=== PATIENT | male | born 1980 | race Caucasian/White ===

== ENCOUNTER 2017-02-05 11:36 | Emergency (ER) | payer OTHER ==
[2017-02-05 11:48] VITALS: BP 157/96; PULSE 70; RESP 20; TEMP 98
[2017-02-05] MEDS ORDERED: HYDROcodone/APAP 5-325MG 1 EACH TAB PO STA (12:08)
[2017-02-05] MEDS ORDERED: CYCLOBENZAPRINE 10 MG TAB PO STA (12:08)
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
== END 2017-02-05 12:39 | disposition home or self-care (01) ==
LOC: EC 11:36
DX: M75.82 Other shoulder lesions, left shoulder (principal); M62.838 Other muscle spasm; I10 Essential (primary) hypertension; E11.9 Type 2 diabetes mellitus without complications; F17.200 Nicotine dependence, unspecified, uncomplicated; Z79.84 Long term (current) use of oral hypoglycemic drugs; Z79.899 Other long term (current) drug therapy
CPT/HCPCS: 99283

== ENCOUNTER 2020-11-17 19:04 | Observation (INO) | payer OTHER ==
--- NOTE | 2020-11-17 19:31 | ED ---
General Adult HPI - General Chief complaint: Chest Pain Stated complaint: Chest pain Time Seen by Provider: 11/17/20 19:20 Source: patient Mode of arrival: ambulatory Limitations: no limitations - History of Present Illness Initial comments: Dictation was produced using [employer] dictation software. please excuse any grammatical, word or spelling errors. Chief Complaint: 40-year-old male Sent in by primary care physician for abnormal EKG History of Present Illness: 40-year-old male who has past medical history diabetes and hypertension. States that he's been having on and off exertional chest pain for the last 7 days. He went to see his primary care today and had an abnormal EKG. He was told to come to the emergency department. Patient states he has pain to his epigastric area radiates to his left shoulder and left upper extremity. Patient has any history of coronary artery disease or known heart disease. He reports mild diaphoresis with the symptoms. Patient has any symptoms currently. The ROS documented in this emergency department record has been reviewed and confirmed by me. Those systems with pertinent positive or negative responses have been documented in the HPI. All other systems are other negative and/or noncontributory. PHYSICAL EXAM: General Impression: Alert and oriented x3, not in acute distress HEENT: Normocephalic atraumatic, extra-ocular movements intact, pupils equal and reactive to light bilaterally, mucous membranes moist. Cardiovascular: Heart regular rate and rhythm Chest: Able to complete full sentences, no retractions, no tachypnea Abdomen: abdomen soft, non-tender, non-distended, no organomegaly Musculoskeletal: Pulses present and equal in all extremities, no peripheral ed rolando Motor: no focal deficits noted Neurological: CN II-XII grossly intact, no focal motor or sensory deficits noted Skin: Intact with no visualized rashes Psych: Normal affect and mood ED course: 40-year-old male presents to the emergency department for typical chest pain concerning for acute coronary syndrome. He is pain-free at this time. Physical examination is benign. Vital signs upon arrival are within acceptable limits. Lavatory evaluation obtained. CBC, coag panel, Bolick panel is unremarkable. First troponin is negative. Chest x-ray shows no acute processes. Patient reevaluated bedside at 9:00 PM. There is concern for acute guarding surgery. Patient be admitted for surgical needs, cardiac monitoring and cardiology consultation. He received aspirin at his PCPs office prior to arrival. EKG interpretation: Ventricular rate 69, sinus rhythm,. Interval 136, QRS 84, QTC 411. No IL prolongation, no QTC prolongation, possible hyperacute T waves in anterior precordial leads. Overall, this EKG is nonspecific - Related Data Home Medications Medication Instructions Recorded Confirmed Acetaminophen [Tylenol] 1,500 mg PO DAILY PRN 02/05/17 02/05/17 Atorvastatin [Lipitor] 20 mg PO DAILY 02/05/17 02/05/17 Lisinopril [Prinivil] 10 mg PO DAILY 02/05/17 02/05/17 glipiZIDE XL [Glucotrol Xl] 10 mg PO DAILY 02/05/17 02/05/17 metFORMIN HCL 1,000 mg PO BID 02/05/17 02/05/17 Previous Rx's Medication Instructions Recorded Cyclobenzaprine [Flexeril] 10 mg PO TID PRN #15 tab 02/05/17 Hydrocodone/Acetaminophen [[place] 1 tab PO Q6HR PRN #20 tab 02/05/17 5-325] Ibuprofen [Motrin] 600 mg PO Q8HR PRN #30 tab 02/05/17 Allergies Allergy/AdvReac Type Severity Reaction Status Date / Time No Known Allergies Allergy Verified 02/05/17 11:59 Review of Systems ROS Statement: Those systems with pertinent positive or pertinent negative responses have been documented in the HPI. ROS Other: All systems not noted in ROS Statement are negative. Past Medical History Past Medical History: Diabetes Mellitus, Hypertension History of Any Multi-Drug Resistant Organisms: None Reported Past Surgical History: No Surgical Hx Reported Past Psychological History: No Psychological Hx Reported Smoking Status: Former smoker Past Alcohol Use History: Occasional Past Drug Use History: None Reported General Exam Limitations: no limitations Course Vital Signs 11/17/20 19:14 Temperature 98.8 F Pulse Rate 75 Respiratory 18 Rate Blood Pressure 143/75 O2 Sat by Pulse 98 Oximetry Medical Decision Making - Lab Data Result diagrams: 11/17/20 19:35 11/17/20 19:35 Lab Results 11/17/20 11/17/20 11/17/20 Range/Units 19:35 19:35 19:35 WBC 6.8 (3.8-10.6) k/uL RBC 5.29 (4.30-5.90) m/uL Hgb 16.2 (13.0-17.5) gm/dL Hct 46.6 (39.0-53.0) % MCV 88.0 (80.0-100.0) fL MCH 30.7 (25.0-35.0) pg MCHC 34.9 (31.0-37.0) g/dL RDW 12.8 (11.5-15.5) % Plt Count 203 (150-450) k/uL MPV 8.3 Neutrophils % 51 % Lymphocytes % 37 % Monocytes % 6 % Eosinophils % 3 % Basophils % 1 % Neutrophils # 3.5 (1.3-7.7) k/uL Lymphocytes # 2.5 (1.0-4.8) k/uL Monocytes # 0.4 (0-1.0) k/uL Eosinophils # 0.2 (0-0.7) k/uL Basophils # 0.0 (0-0.2) k/uL PT 10.8 (9.0-12.0) sec INR 1.0 (<1.2) APTT 21.5 L (22.0-30.0) sec Sodium 138 (137-145) mmol/L Potassium 4.7 (3.5-5.1) mmol/L Chloride 104 (98-107) mmol/L Carbon Dioxide 27 (22-30) mmol/L Anion Gap 7 mmol/L BUN 18 (9-20) mg/dL Creatinine 0.99 (0.66-1.25) mg/dL Est GFR (CKD-EPI)AfAm >90 (>60 ml/min/1.73 sqM) Est GFR (CKD-EPI)NonAf >90 (>60 ml/min/1.73 sqM) Glucose 131 H (74-99) mg/dL Calcium 9.3 (8.4-10.2) mg/dL Magnesium 1.9 (1.6-2.3) mg/dL Total Bilirubin 0.2 (0.2-1.3) mg/dL AST 22 (17-59) U/L ALT 19 (4-49) U/L Alkaline Phosphatase 33 L (38-126) U/L Troponin I (0.000-0.034) ng/mL Total Protein 6.2 L (6.3-8.2) g/dL Albumin 3.9 (3.5-5.0) g/dL 11/17/20 Range/Units 19:35 WBC (3.8-10.6) k/uL RBC (4.30-5.90) m/uL Hgb (13.0-17.5) gm/dL Hct (39.0-53.0) % MCV (80.0-100.0) fL MCH (25.0-35.0) pg MCHC (31.0-37.0) g/dL RDW (11.5-15.5) % Plt Count (150-450) k/uL MPV Neutrophils % % Lymphocytes % % Monocytes % % Eosinophils % % Basophils % % Neutrophils # (1.3-7.7) k/uL Lymphocytes # (1.0-4.8) k/uL Monocytes # (0-1.0) k/uL Eosinophils # (0-0.7) k/uL Basophils # (0-0.2) k/uL PT (9.0-12.0) sec INR (<1.2) APTT (22.0-30.0) sec Sodium (137-145) mmol/L Potassium (3.5-5.1) mmol/L Chloride (98-107) mmol/L Carbon Dioxide (22-30) mmol/L Anion Gap mmol/L BUN (9-20) mg/dL Creatinine (0.66-1.25) mg/dL Est GFR (CKD-EPI)AfAm (>60 ml/min/1.73 sqM) Est GFR (CKD-EPI)NonAf (>60 ml/min/1.73 sqM) Glucose (74-99) mg/dL Calcium (8.4-10.2) mg/dL Magnesium (1.6-2.3) mg/dL Total Bilirubin (0.2-1.3) mg/dL AST (17-59) U/L ALT (4-49) U/L Alkaline Phosphatase (38-126) U/L Troponin I <0.012 (0.000-0.034) ng/mL Total Protein (6.3-8.2) g/dL Albumin (3.5-5.0) g/dL Disposition Clinical Impression: Chest pain Disposition: ADMITTED IP TO THIS HOSP Condition: Fair Referrals: Indio Olivier MD [Primary Care Provider] - 1-2 days
[2020-11-17 19:58] LABS: Basophils % (A) 1 %; Eosinophils # (A) 0.2 k/uL (0-0.7); Eosinophils % (A) 3 %; HCT 46.6 % (39.0-53.0); HGB 16.2 gm/dL (13.0-17.5); Lymphocytes # (A) 2.5 k/uL (1.0-4.8); Lymphocytes % (A) 37 %; MCH 30.7 pg (25.0-35.0); MCHC 34.9 g/dL (31.0-37.0); Mean Platelet Volume 8.3; Monocytes # (A) 0.4 k/uL (0-1.0); Monocytes % (A) 6 %; Neutrophils # (A) 3.5 k/uL (1.3-7.7); Neutrophils % (A) 51 %; Platelet Count 203 k/uL (150-450); RBC 5.29 m/uL (4.30-5.90); RDW 12.8 % (11.5-15.5); WBC 6.8 k/uL (3.8-10.6)
[2020-11-17 20:08] LABS: ALT 19 U/L (4-49); AST 22 U/L (17-59); African American GFR (CKD) >90 (>60 ml/min/1.73 sqM); Albumin 3.9 g/dL (3.5-5.0); Alkaline Phosphatase 33 U/L (38-126); Anion Gap 7 mmol/L; Blood Urea Nitrogen 18 mg/dL (9-20); Calcium 9.3 mg/dL (8.4-10.2); Carbon Dioxide 27 mmol/L (22-30); Chloride 104 mmol/L (98-107); Glucose 131 mg/dL (74-99); Magnesium 1.9 mg/dL (1.6-2.3); Non-African American GFR(CKD) >90 (>60 ml/min/1.73 sqM); Sodium 138 mmol/L (137-145); Total Bilirubin 0.2 mg/dL (0.2-1.3); Total Protein 6.2 g/dL (6.3-8.2)
[2020-11-17 20:10] LABS: Potassium 4.7 mmol/L (3.5-5.1)
[2020-11-17 20:18] LABS: Prothrombin Time 10.8 sec (9.0-12.0)
--- NOTE | 2020-11-17 20:32 | XR ---
EXAMINATION TYPE: XR chest 2V DATE OF EXAM: 11/17/2020 COMPARISON: NONE HISTORY: Abnormal cardiogram TECHNIQUE: 2 views FINDINGS: Heart and mediastinum are normal. Lungs are clear. Diaphragm is normal. Bony thorax appears normal. There are chest leads. IMPRESSION: Normal chest.
[2020-11-17 20:34] LABS: Partial Thromboplastin Time 21.5 sec (22.0-30.0)
[2020-11-17] MEDS ORDERED: NITROGLYCERIN SL TABS 0.4 MG TAB SUBLINGUAL PRN (21:06)
[2020-11-18] MEDS ORDERED: ASPIRIN 325 MG TAB PO SCH (09:00)
[2020-11-18 09:20] VITALS: TEMP 98
[2020-11-18 09:24] LABS: Chol/HDL Ratio 3.92; LDL Cholesterol,Calculated 66.4 mg/dL (0.0-131.0); VLDL Calculation 41.6 mg/dL (5.00-40.00)
[2020-11-18] MEDS ORDERED: lisinopriL 10 MG TAB PO SCH (09:45)
--- NOTE | 2020-11-18 09:45 | P.CRDCN ---
History of Present Illness Consult date: 11/18/20 History of present illness: HISTORY OF PRESENT ILLNESS: This is a 40 year old male with a past medical history significant for hypertension, hyperlipidemia, diabetes mellitus and nicotine dependence. Patient states he quit smoking 3 weeks ago. Patient also has a family history of coronary artery disease and states his dad from a heart attack when he was in his 40s. Patient does not follow with a cardiac rn. We have been asked to see the patient in consultation for chest pain. Patient examined at the bedside. Patient states he started having chest pain on Saturday while doing some yard work at his house. He states he has been having intermittent pain since that time. He states the pain is worse with exertion. He states the pain radiates down his arm and into his jaw. He states he feels nauseated and sweaty when the pain occurs. He also reports shortness of breath. Patient states he went to his primary care physician yesterday and had an EKG obtained and was encouraged to come to the emergency room for further evaluation. At the time of examination, the patient denies any chest pain or pressure. EKG reveals sinus mechanism with no signs of acute ischemia. Chest xray negative for acute process Laboratory data: WBC 6.8. Hemoglobin 16.2. Platelet count 203. Sodium 138. Potassium 4.7. BUN 18. Creatinine 0.99. Magnesium 1.9. Troponin negative 3 Current home cardiac medications include lisinopril 10 mg daily REVIEW OF SYSTEMS: At the time of my exam: CONSTITUTIONAL: Denies fever or chills. HEENT: Denies blurred vision, vision changes, or eye pain. Denies hemoptysis CARDIOVASCULAR: Denies chest pain. Denies orthopnea. Denies PND. Denies palpitations RESPIRATORY: Denies shortness of breath. GASTROINTESTINAL: Denies abdominal pain. Denies nausea or vomiting. HEMATOLOGIC: Denies bleeding disorders. GENITOURINARY: Denies any blood in urine. SKIN: Denies pruitis. Denies rash. PHYSICAL EXAM: VITAL SIGNS: Reviewed. GENERAL: Well-developed in no acute distress. HEENT: Head is normocephalic. Pupils are equal, round. Sclerae anicteric. Mucous membranes of the mouth are moist. Neck supple. No JVD or thyromegaly LUNGS: Respirations even and unlabored. Lungs essentially clear to auscultation bilaterally. HEART: Regular rate and rhythm. S1 and S2 heard. ABDOMEN: Soft. Nondistended. Nontender. EXTREMITIES: Normal range of motion. No clubbing or cyanosis. Peripheral pulses intact. No lower extremity edema NEUROLOGIC: Awake and alert. Oriented x 3. ASSESSMENT: Chest pain Hypertension Hyperlipidemia Diabetes Nicotine dependence, patient quit smoking 3 weeks ago Family history of premature coronary artery disease PLAN: An acute coronary event has been ruled out Resume home cardiac medications Obtain 2-D echo to assess cardiac structure and function Patient to undergo stress echocardiogram today to assess for reversible ischemia Nurse practitioner note has been reviewed by physician. Signing provider agrees with the documented findings, assessment, and plan of care. Past Medical History Past Medical History: Diabetes Mellitus, Hypertension History of Any Multi-Drug Resistant Organisms: None Reported Past Surgical History: No Surgical Hx Reported Past Psychological History: No Psychological Hx Reported Smoking Status: Former smoker Past Alcohol Use History: Occasional Past Drug Use History: None Reported Medications and Allergies Home Medications Medication Instructions Recorded Confirmed Type Lisinopril [Prinivil] 10 mg PO DAILY 02/05/17 11/17/20 History Esomeprazole Magnesium [NexIUM 20 mg PO DAILY PRN 11/17/20 11/17/20 History 24Hr] Glipizide (Unknown Strength) 1 dose PO BID 11/17/20 11/17/20 History Allergies Allergy/AdvReac Type Severity Reaction Status Date / Time No Known Allergies Allergy Verified 11/17/20 21:19 Physical Exam Vitals: Vital Signs Temp Pulse Resp BP Pulse Ox 11/18/20 09:19 98.0 F 57 L 18 123/85 98 11/18/20 06:00 56 L 18 134/90 98 11/17/20 23:01 98.3 F 66 18 129/83 97 11/17/20 19:14 98.8 F 75 18 143/75 98 Intake and Output 11/17/20 11/18/20 11/18/20 22:59 06:59 14:59 Other: Weight 99.79 kg Results 11/17/20 19:35 11/17/20 19:35 Cardiac Enzymes 11/17/20 11/17/20 11/17/20 Range/Units 19:35 19:35 22:28 AST 22 (17-59) U/L Troponin I <0.012 <0.012 (0.000-0.034) ng/mL 11/18/20 Range/Units 02:40 AST (17-59) U/L Troponin I <0.012 (0.000-0.034) ng/mL Coagulation 11/17/20 Range/Units 19:35 PT 10.8 (9.0-12.0) sec APTT 21.5 L (22.0-30.0) sec CBC 11/17/20 Range/Units 19:35 WBC 6.8 (3.8-10.6) k/uL RBC 5.29 (4.30-5.90) m/uL Hgb 16.2 (13.0-17.5) gm/dL Hct 46.6 (39.0-53.0) % Plt Count 203 (150-450) k/uL Comprehensive Metabolic Panel 11/17/20 Range/Units 19:35 Sodium 138 (137-145) mmol/L Potassium 4.7 (3.5-5.1) mmol/L Chloride 104 (98-107) mmol/L Carbon Dioxide 27 (22-30) mmol/L BUN 18 (9-20) mg/dL Creatinine 0.99 (0.66-1.25) mg/dL Glucose 131 H (74-99) mg/dL Calcium 9.3 (8.4-10.2) mg/dL AST 22 (17-59) U/L ALT 19 (4-49) U/L Alkaline Phosphatase 33 L (38-126) U/L Total Protein 6.2 L (6.3-8.2) g/dL Albumin 3.9 (3.5-5.0) g/dL Current Medications Generic Name Dose Route Start Last Admin Trade Name Freq PRN Reason Stop Dose Admin Aspirin 325 mg 11/18/20 09:00 11/18/20 09:20 Aspirin 325 Mg Tab PO 325 mg DAILY SONJA Administration Nitroglycerin 0.4 mg 11/17/20 21:06 Nitroglycerin Sl Tabs 0.4 Mg Tab SUBLINGUAL Q5M PRN Chest Pain Intake and Output 11/17/20 11/18/20 11/18/20 22:59 06:59 14:59 Other: Weight 99.79 kg 11/17/20 19:35 11/17/20 19:35
[2020-11-18] MEDS ORDERED: PANTOPRAZOLE 40 MG TABLET PO PRN (10:08)
[2020-11-18 11:48] LABS: Glucose,Whole Blood 143 mg/dL (75-99)
--- NOTE | 2020-11-18 12:40 | P.HPIM ---
History of Present Illness Patient is a pleasant 40-year-old male came in with complaints of chest pain which started yesterday denied any relationship with food but patient chest pain isn't on the left side does have pleuritic competent moderate severity exer tional on and off chest pain radiating to the left and also felt nausea treated, associated dizziness and diaphoresis and some shortness of breath as well. ECG showed sinus rhythm without any acute ST-T wave changes chest x-ray did not show any significant abnormality. Troponins were negative. Patient will undergo stress test today. Patient that his chest pain has gastric reflux disease to call [facility] are without any significant improvement in his epigastric pain and burning. Review of Systems REVIEW OF SYSTEMS: CONSTITUTIONAL: No fever, no malaise, no fatigue. HEENT: No recent visual problems or hearing problems. Denied any sore throat. CARDIOVASCULAR: No orthopnea, PND, no palpitations, no syncope. PULMONARY: No shortness of breath, no cough, no hemoptysis. GASTROINTESTINAL: No diarrhea, no nausea, no vomiting, no abdominal pain. NEUROLOGICAL: No headaches, no weakness, no numbness. HEMATOLOGICAL: Denies any bleeding or petechiae. GENITOURINARY: Denies any burning micturition, frequency, or urgency. MUSCULOSKELETAL/RHEUMATOLOGICAL: Denies any joint pain, swelling, or any muscle pain. ENDOCRINE: Denies any polyuria or polydipsia. The rest of the 14-point review of systems is negative. Past Medical History Past Medical History: Diabetes Mellitus, GERD/Reflux, Hyperlipidemia, Hypertension, Renal Disease Additional Past Medical History / Comment(s): NIDDM type II, neuropathy bilateral feet, past hyperlipidemia/pt unsure if this is still a problem, GERD often, passed kidney stones on his own, frequent low back pain/bulging discs. History of Any Multi-Drug Resistant Organisms: None Reported Past Surgical History: Orthopedic Surgery Additional Past Surgical History / Comment(s): L hand injury with repair of an artery. Past Anesthesia/Blood Transfusion Reactions: No Reported Reaction Smoking Status: Former smoker - Past Family History Father Family Medical History: Myocardial Infarction ([place]) Additional Family Medical History / Comment(s): Father of a [place] in his 40s. Mother Family Medical History: Diabetes Mellitus, Hyperlipidemia, Hypertension Medications and Allergies Home Medications Medication Instructions Recorded Confirmed Type Lisinopril [Prinivil] 10 mg PO DAILY 02/05/17 11/17/20 History Esomeprazole Magnesium [NexIUM 20 mg PO DAILY PRN 11/17/20 11/17/20 History 24Hr] glipiZIDE [Glucotrol] 5 mg PO AC-BID 11/18/20 11/18/20 History Allergies Allergy/AdvReac Type Severity Reaction Status Date / Time No Known Allergies Allergy Verified 11/17/20 21:19 Physical Exam Vitals: Vital Signs Temp Pulse Resp BP Pulse Ox 11/18/20 11:37 57 L 18 122/88 99 11/18/20 09:19 98.0 F 57 L 18 123/85 98 11/18/20 06:00 56 L 18 134/90 98 11/17/20 23:01 98.3 F 66 18 129/83 97 11/17/20 19:14 98.8 F 75 18 143/75 98 Intake and Output 11/17/20 11/18/20 11/18/20 22:59 06:59 14:59 Other: Weight 99.79 kg 99.79 kg PHYSICAL EXAMINATION: GENERAL: The patient is alert and oriented x3, not in any acute distress. Well developed, well nourished. HEENT: Pupils are round and equally reacting to light. EOMI. No scleral icterus. No conjunctival pallor. Normocephalic, atraumatic. No pharyngeal erythema. No thyromegaly. CARDIOVASCULAR: S1 and S2 present. No murmurs, rubs, or gallops. PULMONARY: Chest is clear to auscultation, no wheezing or crackles. ABDOMEN: Soft, nontender, nondistended, normoactive bowel sounds. No palpable organomegaly. MUSCULOSKELETAL: No joint swelling or deformity. EXTREMITIES: No cyanosis, clubbing, or pedal edema. NEUROLOGICAL: Gross neurological examination did not reveal any focal deficits. SKIN: No rashes. Results CBC & Chem 7: 11/17/20 19:35 11/17/20 19:35 Labs: Abnormal Lab Results - Last 24 Hours (Table) 11/17/20 11/17/20 11/18/20 Range/Units 19:35 19:35 02:40 APTT 21.5 L (22.0-30.0) sec Glucose 131 H (74-99) mg/dL POC Glucose (mg/dL) (75-99) mg/dL Alkaline Phosphatase 33 L (38-126) U/L Total Protein 6.2 L (6.3-8.2) g/dL Triglycerides 208.0 H (0.0-149.0) mg/dL VLDL Cholesterol, Calc 41.60 H (5.00-40.00) mg/dL HDL Cholesterol 37.0 L (40.0-60.0) mg/dL 11/18/20 Range/Units 11:45 APTT (22.0-30.0) sec Glucose (74-99) mg/dL POC Glucose (mg/dL) 143 H (75-99) mg/dL Alkaline Phosphatase (38-126) U/L Total Protein (6.3-8.2) g/dL Triglycerides (0.0-149.0) mg/dL VLDL Cholesterol, Calc (5.00-40.00) mg/dL HDL Cholesterol (40.0-60.0) mg/dL Thrombosis Risk Factor Assmnt - Choose All That Apply Any of the Below Risk Factors Present?: Yes Each Factor Represents 1 point: Obesity (BMI >25) Other Risk Factors: No Other congenital or acquired thrombophilia - If yes, enter type in comment: No Thrombosis Risk Factor Assessment Total Risk Factor Score: 1 Thrombosis Risk Factor Assessment Level: Low Risk Assessment and Plan Plan: -Chest pain: Ruled out acute coronary syndromes patient will undergo stress test and if that's negative patient will be discharged on Protonix as there is a possibility that this may be related to gastroesophageal reflux disease. also has some cloudy competent to his chest pain because of which I'll obtain a d-dimer to rule out the possibility of pulmonary embolism. -Possible gases visual reflux disease -Ruled out PE with the d-dimer -Hypertension continue with lisinopril If patient stresses is negative patient will be discharged on Protonix for 14 days of empirically.
[2020-11-18] MEDS: INSULIN ASPART (NovoLOG) 100 UNIT/ML VIAL SQ SCH ×2 (12:48→17:57)
--- NOTE | 2020-11-18 16:18 | ECHOS ---
STRESS ECHOCARDIOGRAM LUMASON: INDICATIONS: Chest pain. MEDICATIONS: BASELINE HEART RATE: 60 BASELINE BLOOD PRESSURE: 158/70 MAXIMUM HEART RATE: 122 MAXIMUM BLOOD PRESSURE: 167/81 85% MPHR: 154 100% MPHR: 181 METS: 12.1 MAXIMUM STAGE REACHED: 4 TOTAL EXERCISE TIME: 12:00 CLINICAL INFORMATION: Baseline rhythm is sinus mechanism, rate of 60, normal axis and intervals occasional PVCs. Baseline blood pressure 158/70 minute Hg. The patient exercised on Sabino protocol for 12 minutes reaching peak rate 122 beats per minute which is equal to 67% maximum predicted heart rate. Peak blood pressure 167/81 mmHg. Test was terminated secondary to fatigue. There was no significant chest pain. Electrocardiograph monitoring revealed no evidence of diagnostic ischemic ST deviation. FINDINGS: Baseline echocardiogram revealed normal wall motion. At peak exercise, there was normal wall motion augmentation with no hypokinesis or dyskinesis. CONCLUSION: 1. Excellent exercise tolerance with nondiagnostic electrocardiograph stress testing secondary to the inability to achieve 85% maximum predicted heart rate, at the rate achieved there was no evidence of stress-induced ischemia. 2. Chest discomfort during exercise, with no significant changes. 3. Nondiagnostic echo cardiographic stress testing secondary to the inability to achieve 85% maximum predicted heart rate, but at the rate achieved there was no evidence of stress-induced ischemia with good exercise tolerance. MMODL / IJN: [id number] / [id number]
[2020-11-18 17:51] LABS: Glucose,Whole Blood 137 mg/dL (75-99)
--- NOTE | 2020-11-18 17:59 | ECHOF ---
Referral Reason:chest pain, lv function MEASUREMENTS -------- HEIGHT: 182.9 cm WEIGHT: 99.8 kg BP: RVIDd: 4.0 cm (< 3.3) IVSd: 1.1 cm (0.6 - 1.1) LVIDd: 4.6 cm (3.9 - 5.3) LVPWd: 1.0 cm (0.6 - 1.1) IVSs: 2.0 cm LVIDs: 2.6 cm LVPWs: 1.9 cm LAESV Index (A-L): 20.38 ml/m Ao Diam: 3.7 cm (2.0 - 3.7) AV Cusp: 2.2 cm (1.5 - 2.6) MV EXCURSION: 21.622 mm (> 18.000) MV EF SLOPE: 138 mm/s (70 - 150) EPSS: 0.5 cm MV E Casey: 0.86 m/s MV DecT: 210 ms MV A Casey: 0.94 m/s MV E/A Ratio: 0.92 RAP: 5.00 mmHg RVSP: 34.14 mmHg FINDINGS -------- Sinus rhythm. This was a technically good study. The left ventricular size is normal. Left ventricular wall thickness is normal. Overall left vent ricular systolic function is normal with, an EF between 55 - 60 %. The diastolic filling pattern is normal for the age of the patient 12.17. The right ventricle is moderately enlarged. Normal LA size by volume 22+/-6 ml/m2. The right atrial size is normal. Interatrial and interventricular septum intact. The aortic valve is trileaflet, and appears structurally normal. No aortic stenosis or regurgitation. The mitral valve is normal. There is trace to mild mitral regurgitation. The tricuspid valve appears structurally normal. Mild tricuspid regurgitation present. Right vent ricular systolic pressure is normal at < 35 mmHg. The right ventricular systolic pressure, as measu red by Doppler, is 34.14mmHg. There is no pulmonic regurgitation present. The aortic root size is normal. IVC Not well visulized. There is no pericardial effusion. CONCLUSIONS -------- 1. Left ventricular wall thickness is normal. 2. Overall left ventricular systolic function is normal with, an EF between 55 - 60 %. 3. The right ventricle is moderately enlarged. 4. Normal LA size by volume 22+/-6 ml/m2. 5. The aortic valve is trileaflet, and appears structurally normal. No aortic stenosis or regurgitati on. 6. There is trace to mild mitral regurgitation. 7. Mild tricuspid regurgitation present. 8. There is no pericardial effusion. SIDING C[employer]BOARD INSPECTOR: Sandra Camejo RDCS
[2020-11-18 20:03] VITALS: BP 118/84; PULSE 58; RESP 16
[2020-11-19] MEDS ORDERED: ASPIRIN 81 MG PO SCH (09:00)
--- NOTE | 2020-11-23 08:55 | P.DS ---
Providers Date of admission: 11/17/20 21:07 Expected date of discharge: 11/18/20 Attending physician: Romulo Vines Consults: 11/17/20 21:06 Consult Physician Urgent Consulting Provider: Mathew Stone Consult Reason/Comments: chest pain Do you want consulting provider notified?: Yes Primary care physician: Indio Olivier [facility] Course: Patient was admitted for chest pain. Patient underwent stress test that was negative and patient was discharged on the same day.. Please refer to HPI from November 18 for further details of hospitalization. Patient Condition at Discharge: Fair Plan - Discharge Summary Discharge Rx Participant: No New Discharge Prescriptions: New Pantoprazole Sodium [Protonix] 40 mg PO AC-BRKFST #14 tablet. Discontinued Esomeprazole Magnesium [NexIUM 24Hr] 20 mg PO DAILY PRN PRN Reason: GERDS No Action Lisinopril [Prinivil] 10 mg PO DAILY glipiZIDE [Glucotrol] 5 mg PO AC-BID Discharge Medication List Lisinopril [Prinivil] 10 mg PO DAILY 02/05/17 [History] Pantoprazole Sodium [Protonix] 40 mg PO AC-BRKFST #14 tablet. 11/18/20 [Rx] glipiZIDE [Glucotrol] 5 mg PO AC-BID 11/18/20 [History] Follow up Appointment(s)/Referral(s): Indio Olivier MD [Primary Care Provider] - 3 Days Discharge Disposition: HOME SELF-CARE
== END 2020-11-18 22:05 | disposition home or self-care (01) ==
LOC: EC 19:04 → 6NMEDSUR 21:07
PROVIDERS: ADMIT Hospitalist; ATTEND Hospitalist
DX: R07.89 Other chest pain (principal); I10 Essential (primary) hypertension; E78.5 Hyperlipidemia, unspecified; E11.9 Type 2 diabetes mellitus without complications; Z20.822 Contact with and (suspected) exposure to COVID-19; R94.31 Abnormal electrocardiogram [ECG] [EKG]; G90.09 Other idiopathic peripheral autonomic neuropathy; I25.10 Atherosclerotic heart disease of native coronary artery without angina pectoris; K21.9 Gastro-esophageal reflux disease without esophagitis; R06.02 Shortness of breath; R61 Generalized hyperhidrosis; Y93.H2 Activity, gardening and landscaping; M79.602 Pain in left arm; M79.642 Pain in left hand; M25.512 Pain in left shoulder; M54.5 Low back pain; Z79.899 Other long term (current) drug therapy; Z79.84 Long term (current) use of oral hypoglycemic drugs; Z87.891 Personal history of nicotine dependence; Z87.442 Personal history of urinary calculi; Z83.3 Family history of diabetes mellitus; Z82.49 Family history of ischemic heart disease and other diseases of the circulatory system
CPT/HCPCS: 99285; 36415; 93005; 93306; 93351; 85379; 80061; 80053; 83735; 84484 ×2; 85025; 85610; 85730; 87635; 71046; G0378 ×2

== ENCOUNTER 2020-11-23 11:09 | Emergency (ER) | payer OTHER ==
[2020-11-23 11:27] VITALS: BP 121/82; PULSE 66; RESP 20; TEMP 97.4
[2020-11-23] MEDS ORDERED: PANTOPRAZOLE 40 MG/10 ML VIAL IVP STA (13:33)
[2020-11-23] MEDS ORDERED: ONDANSETRON 4 MG/2 ML VIAL IVP STA (13:33)
[2020-11-23] MEDS ORDERED: SODIUM CHLORIDE 0.9% 1,000 ML IV STA (13:33)
[2020-11-23 13:58] LABS: Basophils # (A) 0.1 k/uL (0-0.2); Basophils % (A) 1 %; Eosinophils # (A) 0.2 k/uL (0-0.7); Eosinophils % (A) 3 %; HGB 15.7 gm/dL (13.0-17.5); Lymphocytes # (A) 2.1 k/uL (1.0-4.8); Lymphocytes % (A) 34 %; MCV 88.5 fL (80.0-100.0); Mean Platelet Volume 8.2; Monocytes # (A) 0.4 k/uL (0-1.0); Monocytes % (A) 6 %; Neutrophils # (A) 3.3 k/uL (1.3-7.7); Neutrophils % (A) 54 %; Platelet Count 193 k/uL (150-450); RBC 5.08 m/uL (4.30-5.90); RDW 12.7 % (11.5-15.5)
[2020-11-23 14:30] LABS: ALT 22 U/L (4-49); AST 21 U/L (17-59); African American GFR (CKD) >90 (>60 ml/min/1.73 sqM); Albumin 3.8 g/dL (3.5-5.0); Alkaline Phosphatase 47 U/L (38-126); Anion Gap 6 mmol/L; Blood Urea Nitrogen 13 mg/dL (9-20); Calcium 8.5 mg/dL (8.4-10.2); Carbon Dioxide 29 mmol/L (22-30); Chloride 102 mmol/L (98-107); Glucose 253 mg/dL (74-99); Non-African American GFR(CKD) >90 (>60 ml/min/1.73 sqM); Potassium 3.8 mmol/L (3.5-5.1); Sodium 137 mmol/L (137-145); Total Bilirubin 0.1 mg/dL (0.2-1.3); Total Protein 6.1 g/dL (6.3-8.2)
--- NOTE | 2020-11-23 14:44 | ED ---
Nausea/Vomiting/Diarrhea HPI - General Chief complaint: Nausea/Vomiting/Diarrhea Stated complaint: revisit -heartburn, nausea, diarrhea Time Seen by Provider: 11/23/20 13:26 Source: patient Mode of arrival: ambulatory Limitations: no limitations - History of Present Illness Initial comments: Patient is a 40-year-old male presenting to the emergency department with continued complaints of heartburn, nausea over the past week. He states when going on for the past couple weeks, he was recently admitted, discharged 5 days ago for chest pain rule out. He had complete heart workup including stress test and stress echo, all within normal limits, no signs of acute ischemic process. He was cleared and discharged home with follow-up. Patient states that his heartburn was never really addressed. He thinks they prescribed him some sort of new medication for the heartburn but he was not sure what called and has not received it yet. He states it is burning from his stomach up into his chest, he does have some nausea with this. He states he does have history of heartburn in the past, Nexium usually helps. He has been taking that along with Pepto without improvement. He has not seen a GI specialist. He denies any fevers or chills, denies any chest pains or shortness of breath, no radiation. He denies any abdominal pain, no vomiting or diarrhea. He has no further complaints at this time. His vital signs are stable upon arrival. - Related Data Home Medications Medication Instructions Recorded Confirmed Lisinopril [Prinivil] 10 mg PO DAILY 02/05/17 11/23/20 glipiZIDE [Glucotrol] 5 mg PO AC-BID 11/18/20 11/23/20 Dulaglutide [Trulicity] 0.75 mg SQ MO 11/23/20 11/23/20 Previous Rx's Medication Instructions Recorded Pantoprazole Sodium [Protonix] 40 mg PO AC-BRKFST #14 tablet. 11/18/20 Allergies Allergy/AdvReac Type Severity Reaction Status Date / Time No Known Allergies Allergy Verified 11/23/20 13:57 Review of Systems ROS Statement: Those systems with pertinent positive or pertinent negative responses have been documented in the HPI. ROS Other: All systems not noted in ROS Statement are negative. Past Medical History Past Medical History: Diabetes Mellitus, GERD/Reflux, Hyperlipidemia, Hypertension, Renal Disease Additional Past Medical History / Comment(s): NIDDM type II, neuropathy bilateral feet, past hyperlipidemia/pt unsure if this is still a problem, GERD often, passed kidney stones on his own, frequent low back pain/bulging discs. History of Any Multi-Drug Resistant Organisms: None Reported Past Surgical History: Orthopedic Surgery Additional Past Surgical History / Comment(s): L hand injury with repair of an artery. Past Anesthesia/Blood Transfusion Reactions: No Reported Reaction Past Psychological History: No Psychological Hx Reported Smoking Status: Former smoker Past Alcohol Use History: Rare Past Drug Use History: Marijuana - Past Family History Father Family Medical History: Myocardial Infarction ([place]) Additional Family Medical History / Comment(s): Father of a [place] in his 40s. Mother Family Medical History: Diabetes Mellitus, Hyperlipidemia, Hypertension General Exam - General Exam Comments Initial Comments: GENERAL: Patient is well-developed and well-nourished. Patient is nontoxic and in no acute distress. HEAD: Atraumatic, normocephalic. EYES: Pupils equal round and reactive to light, extraocular movements intact, sclera anicteric, conjunctiva are normal. Eyelids were unremarkable. ENT: TMs normal, nares patent, oropharynx clear without exudates. Moist mucous membranes. NECK: Normal range of motion, supple without lymphadenopathy or JVD. LUNGS: Unlabored respirations. Breath sounds clear to auscultation bilaterally and equal. No wheezes rales or rhonchi. HEART: Regular rate and rhythm without murmurs, rubs or gallops. ABDOMEN: Soft, nontender, normoactive bowel sounds. No guarding, no rebound. No masses appreciated. : Deferred MUSCULOSKELETAL: Normal extremities with adequate strength and normal range of motion, no pitting or edema. No clubbing or cyanosis. NEUROLOGICAL: Patient is alert and oriented x 3. Motor and sensory are also intact. Cranial nerves II through XII grossly intact. Symmetrical smile. Normal speech, normal gait. PSYCH: Normal mood, normal affect. SKIN: Warm, Dry, normal turgor, no rashes or lesions noted. Limitations: no limitations Course Vital Signs 11/23/20 11:23 Temperature 97.4 F L Pulse Rate 66 Respiratory 20 Rate Blood Pressure 121/82 O2 Sat by Pulse 99 Oximetry Medical Decision Making - Medical Decision Making Patient is a 40-year-old male here with complaints of heartburn and nausea that started increasing over the past 2 weeks. He was recently admitted and disc harged 5 days ago for chest pain workup, he had a stress test, stress echo all within normal limits, 3 negative troponins. He denies any chest pain or shortness of breath today. His EKG showed no acute process. Lab work is unremarkable. His symptoms are consistent with a GERD. The give him some fluids and Protonix, and GI cocktail. Upon reexamination, he is eating and drinking without any acute symptoms. He was already prescribed Protonix by his discharging physician, he has yet to go pick this up. We'll also give him GI follow-up. He is stable for discharge and he is in agreement with this plan and care. Return parameters were discussed with him and he verbalized understanding. Case discussed with Dr. Kim. - Lab Data Result diagrams: 11/23/20 13:46 11/23/20 13:46 Lab Results 11/23/20 11/23/20 11/23/20 Range/Units 13:46 13:46 13:46 WBC 6.0 (3.8-10.6) k/uL RBC 5.08 (4.30-5.90) m/uL Hgb 15.7 (13.0-17.5) gm/dL Hct 45.0 (39.0-53.0) % MCV 88.5 (80.0-100.0) fL MCH 31.0 (25.0-35.0) pg MCHC 35.0 (31.0-37.0) g/dL RDW 12.7 (11.5-15.5) % Plt Count 193 (150-450) k/uL MPV 8.2 Neutrophils % 54 % Lymphocytes % 34 % Monocytes % 6 % Eosinophils % 3 % Basophils % 1 % Neutrophils # 3.3 (1.3-7.7) k/uL Lymphocytes # 2.1 (1.0-4.8) k/uL Monocytes # 0.4 (0-1.0) k/uL Eosinophils # 0.2 (0-0.7) k/uL Basophils # 0.1 (0-0.2) k/uL Sodium 137 (137-145) mmol/L Potassium 3.8 (3.5-5.1) mmol/L Chloride 102 (98-107) mmol/L Carbon Dioxide 29 (22-30) mmol/L Anion Gap 6 mmol/L BUN 13 (9-20) mg/dL Creatinine 0.69 (0.66-1.25) mg/dL Est GFR (CKD-EPI)AfAm >90 (>60 ml/min/1.73 sqM) Est GFR (CKD-EPI)NonAf >90 (>60 ml/min/1.73 sqM) Glucose 253 H (74-99) mg/dL Calcium 8.5 (8.4-10.2) mg/dL Total Bilirubin 0.1 L (0.2-1.3) mg/dL AST 21 (17-59) U/L ALT 22 (4-49) U/L Alkaline Phosphatase 47 (38-126) U/L Troponin I <0.012 (0.000-0.034) ng/mL Total Protein 6.1 L (6.3-8.2) g/dL Albumin 3.8 (3.5-5.0) g/dL - EKG Data EKG Comments: Normal sinus rhythm, normal ECG, no signs of acute process. The jugular rate 66, NC interval 148, QTC 414. Similar to previous EKG on 11/17/2020. Disposition Clinical Impression: Heartburn, GERD (gastroesophageal reflux disease) Disposition: HOME SELF-CARE Condition: Stable Instructions (If sedation given, give patient instructions): Gastroesophageal Reflux Disease (ED) Additional Instructions: Please return to the Emergency Department if symptoms worsen or any other concerns. Please continue with Protonix that was prescribed to you from discharge. Follow up with GI doctor as discussed. Is patient prescribed a controlled substance at d/c from ED?: No Referrals: Indio Olivier MD [Primary Care Provider] - 1-2 days Harry Romano MD [STAFF PHYSICIAN] - 1-2 days Time of Disposition: 15:15
[2020-11-23] MEDS ORDERED: MAG HYDROX/AL HYDROX/SIMETH 30 ML, HYOSCYAMINE ELIXIR 10 ML, LIDOCAINE VISCOUS 2% 10 ML PO STA ×3 (15:13)
== END 2020-11-23 15:28 | disposition home or self-care (01) ==
LOC: EC 11:09
DX: K21.9 Gastro-esophageal reflux disease without esophagitis (principal); E11.40 Type 2 diabetes mellitus with diabetic neuropathy, unspecified; I10 Essential (primary) hypertension; E78.5 Hyperlipidemia, unspecified; F12.90 Cannabis use, unspecified, uncomplicated; Z79.84 Long term (current) use of oral hypoglycemic drugs; Z79.899 Other long term (current) drug therapy; Z87.891 Personal history of nicotine dependence; Z82.49 Family history of ischemic heart disease and other diseases of the circulatory system; Z83.3 Family history of diabetes mellitus; Z83.49 Family history of other endocrine, nutritional and metabolic diseases
CPT/HCPCS: 96374 ×2; 96375 ×2; 96361 ×2; 99284 ×2; 36415; 93005; 80053; 84484; 85025; J2405; C9113

== ENCOUNTER 2021-12-29 18:58 | Emergency (ER) | payer OTHER ==
[2021-12-29] MEDS ORDERED: ACET/COD 300 MG/30 MG STARTER PACK 6 TAB BTL PO STA (20:12)
[2021-12-29] MEDS ORDERED: predniSONE 20 MG TAB PO STA (20:12)
--- NOTE | 2021-12-29 20:13 | ED ---
Upper Extremity HPI - General Chief Complaint: Extremity Injury, Upper Stated Complaint: rt arm pain Time Seen by Provider: 12/29/21 19:43 Source: patient, family Mode of arrival: ambulatory Limitations: no limitations - History of Present Illness Initial Comments: 41-year-old male with a history of diabetes mellitus and hypertension. He pres ents to the emergency department complaining of 2 weeks of constant shooting an electrical type pain radiating down the right arm and into the fourth and fifth fingers. Patient states the pain is exacerbated by movement. Exacerbated by work. Patient works as a advertising internship. Patient does use power tools which also exacerbates the pain. Patient also states pain seems to be exacerbated at night. Does radiate from the hand all the way up to the shoulder. No chest pain or shortness of breath. No direct trauma. No skin rashes or lesions. No headache, no fever or chills, no changes in vision or hearing, no sore throat or difficulty with speech, no neck pain, no chest pain or shortness of breath, no abdominal pain, no nausea or vomiting, no changes in urination or bowel movements,no skin rashes or lesions. Past medical, surgical, social, and family history reviewed. - Related Data Home Medications Medication Instructions Recorded Confirmed lisinopriL [Prinivil] 10 mg PO DAILY 02/05/17 11/23/20 glipiZIDE [Glucotrol] 5 mg PO AC-BID 11/18/20 11/23/20 Dulaglutide [Trulicity] 0.75 mg SQ MO 11/23/20 11/23/20 Previous Rx's Medication Instructions Recorded Pantoprazole Sodium [Protonix] 40 mg PO AC-BRKFST #14 tablet. 11/18/20 methylPREDNISolone Dose Pack 4 mg PO DIRECTED #21 tab 12/29/21 [Medrol Dose Pack] Allergies Allergy/AdvReac Type Severity Reaction Status Date / Time No Known Allergies Allergy Verified 12/29/21 19:42 Review of Systems ROS Statement: Those systems with pertinent positive or pertinent negative responses have been documented in the HPI. ROS Other: All systems not noted in ROS Statement are negative. Past Medical History Past Medical History: Diabetes Mellitus, GERD/Reflux, Hyperlipidemia, Hypertension, Renal Disease Additional Past Medical History / Comment(s): NIDDM type II, neuropathy bilateral feet, past hyperlipidemia/pt unsure if this is still a problem, GERD often, passed kidney stones on his own, frequent low back pain/bulging discs. History of Any Multi-Drug Resistant Organisms: None Reported Past Surgical History: Orthopedic Surgery Additional Past Surgical History / Comment(s): L hand injury with repair of an artery. Past Anesthesia/Blood Transfusion Reactions: No Reported Reaction Past Psychological History: No Psychological Hx Reported Smoking Status: Former smoker Past Alcohol Use History: Rare Past Drug Use History: Marijuana - Past Family History Father Family Medical History: Myocardial Infarction ([place]) Additional Family Medical History / Comment(s): Father of a [place] in his 40s. Mother Family Medical History: Diabetes Mellitus, Hyperlipidemia, Hypertension General Exam - General Exam Comments Initial Comments: Patient does not appear to be ill or toxic. Limitations: no limitations General appearance: alert, in no apparent distress Head exam: Present: atraumatic, normocephalic, normal inspection Eye exam: Present: normal appearance, PERRL, EOMI. Absent: scleral icterus, conjunctival injection, periorbital swelling ENT exam: Present: normal exam, mucous membranes moist Neck exam: Present: normal inspection, full ROM, other (Spurling's test is negative). Absent: tenderness, meningismus, lymphadenopathy Respiratory exam: Present: normal lung sounds bilaterally, other (Patient has some dysesthesia to the right ulnar nerve distribution. Full range of motion and all phalanges, hand, wrist, elbow, and shoulder. Tinel's and Phalen's test are negative. Patient does have tenderness over the ulnar nerve both in the ulnar groove at the elbow and ulnar nerve area ). Absent: respiratory distress, wheezes, rales, rhonchi, stridor, chest wall tenderness, accessory muscle use, decreased breath sounds, prolonged expiratory Cardiovascular Exam: Present: regular rate, normal rhythm, normal heart sounds. Absent: systolic murmur, diastolic murmur, rubs, gallop, clicks GI/Abdominal exam: Present: soft, normal bowel sounds. Absent: distended, tenderness, guarding, rebound, rigid Extremities exam: Present: normal inspection, full ROM, normal capillary refill. Absent: tenderness, pedal edema, joint swelling, calf tenderness Back exam: Present: normal inspection Neurological exam: Present: alert, oriented X3, CN II-XII intact Psychiatric exam: Present: normal affect, normal mood Skin exam: Present: warm, dry, intact, normal color. Absent: rash Course Vital Signs 12/29/21 12/29/21 19:38 20:43 Temperature 97.6 F 97.7 F Pulse Rate 68 80 Respiratory 20 18 Rate Blood Pressure 127/79 140/95 O2 Sat by Pulse 100 98 Oximetry Medical Decision Making - Medical Decision Making Patient symptomology consistent with right ulnar neuropathy. When I went back in to question the patient apparently started seen his regular physician and has been referred for an EMG. We'll try night splinting and a Medrol Dosepak. Patient told to monitor his blood sugars closely. Patient also educated on night splinting. Patient was given a Tylenol with Codeine starter pack. Patient given follow-up with the psychiatrist at orthopedic [facility]. Patient was told to return to the ER for any signs or symptoms worsen. Told to return immediately if any other problems arise. All questions answered. Treatment plan discussed. Patient in agreement Every effort has been made to ensure accuracy of this dictation. However, due to the limitations of electronic medical records and dictation devices, errors in charting still occur. Chemistry Lab Instructor Dr. Gómez Disposition Clinical Impression: Ulnar neuropathy of right upper extremity, Posterior dislocation of elbow Disposition: HOME SELF-CARE Condition: Good Instructions (If sedation given, give patient instructions): Paresthesia (ED) Additional Instructions: Treatment for this type of neuropathy will be the same for couple tunnel syndrome. Splinting at night to keep her wrist straight. Corticosteroids as directed. Pain medicine if needed. Follow-up with the orthopedic office for an EMG. Follow-up with your regular physician as directed. Return to the ER immediately if any symptoms worsen, new symptoms arise, or any other problems develop. Prescriptions: methylPREDNISolone Dose Pack [Medrol Dose Pack] 4 mg PO DIRECTED #21 tab Is patient prescribed a controlled substance at d/c from ED?: No Referrals: Armadno Vasquez MD [STAFF PHYSICIAN] - 01/01/22 8:00 am Time of Disposition: 20:13
[2021-12-29 20:44] VITALS: BP 140/95; PULSE 80; RESP 18; TEMP 97.7
== END 2021-12-29 20:46 | disposition home or self-care (01) ==
LOC: EC 18:58
DX: S44.01XA Injury of ulnar nerve at upper arm level, right arm, initial encounter (principal); S53.124A Posterior dislocation of right ulnohumeral joint, initial encounter; E11.9 Type 2 diabetes mellitus without complications; K21.9 Gastro-esophageal reflux disease without esophagitis; E78.5 Hyperlipidemia, unspecified; I10 Essential (primary) hypertension; N18.9 Chronic kidney disease, unspecified; Z87.891 Personal history of nicotine dependence; Z79.899 Other long term (current) drug therapy; X50.1XXA Overexertion from prolonged static or awkward postures, initial encounter
CPT/HCPCS: 99283; J7512

== ENCOUNTER 2023-12-09 08:21 | Emergency (ER) | payer OTHER ==
[2023-12-09 08:30] VITALS: RESP 18
[2023-12-09 08:34] LABS: Glucose,Whole Blood 269 mg/dL (70-110)
[2023-12-09] MEDS: MORPHINE SULFATE 2 MG/ML SYRINGE IVP STA (09:08)
[2023-12-09] MEDS: ONDANSETRON 4 MG/2 ML VIAL IVP STA (09:08)
[2023-12-09] MEDS: KETOROLAC 15 MG/ML 1 ML VIAL IVP STA (09:08)
[2023-12-09] MEDS: SODIUM CHLORIDE 0.9% 1,000 ML IV STA (09:09)
[2023-12-09 09:27] LABS: ALT 94 U/L (4-49); AST 52 U/L (17-59); African American GFR (CKD) >90 (>60 ml/min/1.73 sqM); Albumin 4.3 g/dL (3.5-5.0); Alkaline Phosphatase 58 U/L (38-126); Amylase 34 U/L (30-110); Anion Gap 9 mmol/L; Blood Urea Nitrogen 12 mg/dL (9-20); Carbon Dioxide 22 mmol/L (22-30); Chloride 104 mmol/L (98-107); Glucose 270 mg/dL (74-99); Lipase 47 U/L (23-300); Non-African American GFR(CKD) >90 (>60 ml/min/1.73 sqM); Potassium 4.4 mmol/L (3.5-5.1); Sodium 135 mmol/L (137-145); Total Bilirubin 0.6 mg/dL (0.2-1.3); Total Protein 7.1 g/dL (6.3-8.2)
[2023-12-09 09:28] LABS: Basophils # (A) 0.2 k/uL (0-0.2); Basophils % (A) 2 %; Eosinophils % (A) 1 %; HCT 53.2 % (39.0-53.0); HGB 17.8 gm/dL (13.0-17.5); Lymphocytes % (A) 14 %; MCHC 33.4 g/dL (31.0-37.0); MCV 89.7 fL (80.0-100.0); Monocytes # (A) 0.6 k/uL (0-1.0); Monocytes % (A) 9 %; Neutrophils # (A) 5.1 k/uL (1.3-7.7); Neutrophils % (A) 72 %; Platelet Count 178 k/uL (150-450); RBC 5.93 m/uL (4.30-5.90); RDW 12.9 % (11.5-15.5)
--- NOTE | 2023-12-09 09:47 | ED ---
Abdominal Pain HPI - General Chief Complaint: Abdominal Pain Stated Complaint: NV/diabetic,constipated Time Seen by Provider: 12/09/23 08:52 Source: patient, RN notes reviewed Mode of arrival: ambulatory Limitations: no limitations - History of Present Illness Initial Comments: This is a 43-year-old male who presents to the emergency department for abdom inal pain. States that over the last week he has had increasing pain to the abdomen. This is worse on the left side and also in the left flank. States that he has also been constipated. Having bowel movements is very painful and he is only going small amounts. Reports some mucus mixed in with the stool. Additionally, he has been very nauseous. Denies any history of kidney stones, but states that he has had burning with urination as well. MD Complaint: abdominal pain, flank pain - Related Data Home Medications Medication Instructions Recorded Confirmed lisinopriL [Prinivil] 10 mg PO DAILY 02/05/17 11/23/20 glipiZIDE [Glucotrol] 5 mg PO AC-BID 11/18/20 11/23/20 Dulaglutide [Trulicity] 0.75 mg SQ MO 11/23/20 11/23/20 Previous Rx's Medication Instructions Recorded Pantoprazole Sodium [Protonix] 40 mg PO AC-BRKFST #14 tablet. 11/18/20 methylPREDNISolone Dose Pack 4 mg PO DIRECTED #21 tab 12/29/21 [Medrol Dose Pack] Doxycycline [Vibramycin] 100 mg PO BID 10 Days #20 capsule 12/09/23 Ketorolac [Toradol] 10 mg PO Q6HR PRN #15 tab 12/09/23 Ondansetron Odt [Zofran Odt] 4 mg PO Q8HR PRN #15 tab 12/09/23 Allergies Allergy/AdvReac Type Severity Reaction Status Date / Time No Known Allergies Allergy Verified 12/09/23 08:30 Review of Systems ROS Statement: Those systems with pertinent positive or pertinent negative responses have been documented in the HPI. ROS Other: All systems not noted in ROS Statement are negative. Past Medical History Past Medical History: Diabetes Mellitus, GERD/Reflux, Hyperlipidemia, Hypertens ion, Renal Disease Additional Past Medical History / Comment(s): NIDDM type II, neuropathy bilateral feet, past hyperlipidemia/pt unsure if this is still a problem, GERD often, passed kidney stones on his own, frequent low back pain/bulging discs. History of Any Multi-Drug Resistant Organisms: None Reported Past Surgical History: Orthopedic Surgery Additional Past Surgical History / Comment(s): L hand injury with repair of an artery. Past Anesthesia/Blood Transfusion Reactions: No Reported Reaction Past Psychological History: No Psychological Hx Reported Smoking Status: Former smoker Past Alcohol Use History: Rare Past Drug Use History: Marijuana - Past Family History Father Family Medical History: Myocardial Infarction ([place]) Additional Family Medical History / Comment(s): Father of a [place] in his 40s. Mother Family Medical History: Diabetes Mellitus, Hyperlipidemia, Hypertension General Exam Limitations: no limitations General appearance: alert, in no apparent distress Head exam: Present: atraumatic, normocephalic, normal inspection Respiratory exam: Present: normal lung sounds bilaterally. Absent: respiratory distress, wheezes, rales, rhonchi, stridor Cardiovascular Exam: Present: regular rate, normal rhythm, normal heart sounds. Absent: systolic murmur, diastolic murmur, rubs, gallop, clicks GI/Abdominal exam: Present: soft, tenderness (diffuse, worse on the left), norm al bowel sounds. Absent: distended Back exam: Present: CVA tenderness (L) Neurological exam: Present: alert, oriented X3, CN II-XII intact Psychiatric exam: Present: normal affect, normal mood Skin exam: Present: warm, dry, intact, normal color. Absent: rash Course Vital Signs 12/09/23 12/09/23 08:26 12:07 Temperature 98.3 F 97.9 F Pulse Rate 92 76 Respiratory 18 18 Rate Blood Pressure 152/85 142/101 O2 Sat by Pulse 98 98 Oximetry Medical Decision Making - Medical Decision Making This is a 43 year old male who presents to the emergency department for abdominal pain. Was pt. sent in by a medical professional or institution? @ -No Did you speak to anyone other than the patient for history? @ -No Did you review nursing and triage notes? @ -Yes, and I agree, it is accurate with regards to the patient's symptoms. Were old charts reviewed? @ -No Differential Diagnosis? @ -Differential Abdominal Pain Men: Appendicitis, cholecystitis, diverticulosis, ischemic bowel, pancreatitis, hepatitis, UTI, gastroenteritis, AAA, incarcerated hernia, bowel obstruction, constipation, inflammatory bowel, hepatitis, peptic ulcer disease, splenic infarction, perforated viscus, testicular torsion, this is not meant to be an all-inclusive list EKG interpreted by me (3pts min.)? @ -EKG interpreted by me demonstrating the following: Sinus rhythm. Ventricular rate 79 bpm, ID interval 155 ms, QRS duration 94 ms, QTc 392 ms. X-rays interpreted by me (1pt min.)? @ -Chest x-ray obtained, my interpretation identifies no localized consolidations or infiltrates. CT interpreted by me (1pt min.)? @ -CT scan of the abdomen and pelvis obtained. My interpretation identifies wall thickening of the rectum. U/S interpreted by me (1pt. min.)? @ -Not obtained What testing was considered but not performed? (CT, X-rays, U/S, labs)? Why? @ -None What meds were considered but not given? Why? @ -None Did you discuss the management of the patient with other professionals? @ -No Did you reconcile home meds? @ -No Was smoking cessation discussed for >3mins.? @ -No Was critical care preformed (if so, how long)? @ -No Were there social determinants of health that impacted care today? How? (Homelessness, low income, unemployed, alcoholism, drug addiction, transportation, low edu. Level, literacy, decrease access to med. care, custodial, rehab)? @ -No Was there de-escalation of care discussed even if they declined? (Discuss DNR or withdrawal of care, Hospice)? @ -No What co-morbidities impacted this encounter? (DM, HTN, Smoking, COPD, CAD, Cancer, CVA, Hep., AIDS, mental health diagnosis, sleep apnea, morbid obesity)? @ -DM, GERD, HLD, HTN Was patient admitted / discharged? @ -Discharged. Lab work unremarkable. Urinalysis not suggestive of infection. Chest x-ray reveals no acute process. CT scan of the abdomen and pelvis demonstrates mild/moderate circumferential wall thickening of the mid to distal rectum with potential minimal perirectal fat stranding suggestive of nonspecific proctitis. Patient denies any concern for STD exposure. He does also have some fluid-filled small bowel loops in the lower abdomen and liquid stool in the right side of the colon that may be transient or represent a concurrent mild enteritis. He also has asymmetric fullness of the left renal collecting system suspected to be on the basis of underlying parapelvic cysts. Patient's symptoms were well-controlled in the emergency department. Will start patient on doxycycline for proctitis. He was also given 1 g of Rocephin in the emergency department. Prescription for Toradol and Zofran provided for further symptomatic management. Advised follow-up with his PCP for reevaluation of his symptoms as well as other findings of hepatomegaly and fullness of the renal collecting system. Undiagnosed new problem with uncertain prognosis? @ -None Drug Therapy requiring intensive monitoring for toxicity (Heparin, Nitro, Insulin, Cardizem)? @ -None Were any procedures done? @ -None Diagnosis/symptom? @ -Proctitis, enteritis Acute, or Chronic, or Acute on Chronic? @ -Acute Uncomplicated (without systemic symptoms) or Complicated (systemic symptoms)? @ -Uncomplicated Side effects of treatment? @ -None Exacerbation, Progression, or Severe Exacerbation] @ -Not applicable Poses a threat to life or bodily function? @ -No Return precautions reviewed in depth, the patient is instructed to return to the emergency department with any new, worsening, or concerning symptoms. Patient verbalized understanding. This case was discussed in detail with the attending ED physician, Dr. Branch. Presentation, findings, and treatment plan discussed in detail as well. - Lab Data Result diagrams: 12/09/23 09:00 12/09/23 09:00 Lab Results 12/09/23 12/09/23 12/09/23 Range/Units 08:33 09:00 09:00 WBC 7.0 (3.8-10.6) k/uL RBC 5.93 H (4.30-5.90) m/uL Hgb 17.8 H (13.0-17.5) gm/dL Hct 53.2 H (39.0-53.0) % MCV 89.7 (80.0-100.0) fL MCH 30.0 (25.0-35.0) pg MCHC 33.4 (31.0-37.0) g/dL RDW 12.9 (11.5-15.5) % Plt Count 178 (150-450) k/uL MPV 10.0 Neutrophils % 72 % Lymphocytes % 14 % Monocytes % 9 % Eosinophils % 1 % Basophils % 2 % Neutrophils # 5.1 (1.3-7.7) k/uL Lymphocytes # 1.0 (1.0-4.8) k/uL Monocytes # 0.6 (0-1.0) k/uL Eosinophils # 0.0 (0-0.7) k/uL Basophils # 0.2 (0-0.2) k/uL Sodium 135 L (137-145) mmol/L Potassium 4.4 (3.5-5.1) mmol/L Chloride 104 (98-107) mmol/L Carbon Dioxide 22 (22-30) mmol/L Anion Gap 9 mmol/L BUN 12 (9-20) mg/dL Creatinine 0.78 (0.66-1.25) mg/dL Est GFR (CKD-EPI)AfAm >90 (>60 ml/min/1.73 sqM) Est GFR (CKD-EPI)NonAf >90 (>60 ml/min/1.73 sqM) Glucose 270 H (74-99) mg/dL POC Glucose (mg/dL) 269 H (70-110) mg/dL POC Glu Mechanical Supervisor ID Honeycombe, Cassia Plasma Lactic Acid Patrice (0.7-2.0) mmol/L Calcium 9.0 (8.4-10.2) mg/dL Total Bilirubin 0.6 (0.2-1.3) mg/dL AST 52 (17-59) U/L ALT 94 H (4-49) U/L Alkaline Phosphatase 58 (38-126) U/L Troponin I (0.000-0.034) ng/mL Total Protein 7.1 (6.3-8.2) g/dL Albumin 4.3 (3.5-5.0) g/dL Amylase 34 (30-110) U/L Lipase 47 (23-300) U/L Urine Color Urine Appearance (Clear) Urine pH (5.0-8.0) Ur Specific [place] (1.001-1.035) Urine Protein (Negative) Urine Glucose (UA) (Negative) Urine Ketones (Negative) Urine Blood (Negative) Urine Nitrite (Negative) Urine Bilirubin (Negative) Urine Urobilinogen (<2.0) mg/dL Ur Leukocyte Esterase (Negative) Urine RBC (0-5) /hpf Urine WBC (0-5) /hpf Urine Mucus (None) /hpf 12/09/23 12/09/23 12/09/23 Range/Units 09:00 09:00 09:00 WBC (3.8-10.6) k/uL RBC (4.30-5.90) m/uL Hgb (13.0-17.5) gm/dL Hct (39.0-53.0) % MCV (80.0-100.0) fL MCH (25.0-35.0) pg MCHC (31.0-37.0) g/dL RDW (11.5-15.5) % Plt Count (150-450) k/uL MPV Neutrophils % % Lymphocytes % % Monocytes % % Eosinophils % % Basophils % % Neutrophils # (1.3-7.7) k/uL Lymphocytes # (1.0-4.8) k/uL Monocytes # (0-1.0) k/uL Eosinophils # (0-0.7) k/uL Basophils # (0-0.2) k/uL Sodium (137-145) mmol/L Potassium (3.5-5.1) mmol/L Chloride (98-107) mmol/L Carbon Dioxide (22-30) mmol/L Anion Gap mmol/L BUN (9-20) mg/dL Creatinine (0.66-1.25) mg/dL Est GFR (CKD-EPI)AfAm (>60 ml/min/1.73 sqM) Est GFR (CKD-EPI)NonAf (>60 ml/min/1.73 sqM) Glucose (74-99) mg/dL POC Glucose (mg/dL) (70-110) mg/dL POC Glu Mechanical Supervisor ID Plasma Lactic Acid Patrice 0.9 (0.7-2.0) mmol/L Calcium (8.4-10.2) mg/dL Total Bilirubin (0.2-1.3) mg/dL AST (17-59) U/L ALT (4-49) U/L Alkaline Phosphatase (38-126) U/L Troponin I <0.012 (0.000-0.034) ng/mL Total Protein (6.3-8.2) g/dL Albumin (3.5-5.0) g/dL Amylase (30-110) U/L Lipase (23-300) U/L Urine Color Yellow Urine Appearance Clear (Clear) Urine pH 5.5 (5.0-8.0) Ur Specific [place] 1.043 H (1.001-1.035) Urine Protein 1+ H (Negative) Urine Glucose (UA) 4+ H (Negative) Urine Ketones 2+ H (Negative) Urine Blood Moderate H (Negative) Urine Nitrite Negative (Negative) Urine Bilirubin Negative (Negative) Urine Urobilinogen <2.0 (<2.0) mg/dL Ur Leukocyte Esterase Negative (Negative) Urine RBC 2 (0-5) /hpf Urine WBC 1 (0-5) /hpf Urine Mucus Occasional H (None) /hpf - Radiology Data Radiology results: report reviewed, image reviewed Disposition Clinical Impression: Proctitis, Enteritis Disposition: HOME SELF-CARE Instructions (If sedation given, give patient instructions): Proctitis (ED), Enteritis (ED) Additional Instructions: Return to the emergency department with any new, worsening, or concerning symptoms. Take the antibiotic as prescribed for 10 days. Take the Toradol with Tylenol as needed for pain relief. If you choose to take the Toradol, do not take any other anti-inflammatories such as ibuprofen, take one or the other. Take the Zofran up to every 8 hours as needed for nausea and vomiting. You can apply something like Vaseline or petroleum jelly to the cuts in the foreskin to coat the area and prevent them from worsening. Follow-up with your primary care provider 1 to 2 days. Prescriptions: Ketorolac [Toradol] 10 mg PO Q6HR PRN #15 tab PRN Reason: Pain Doxycycline [Vibramycin] 100 mg PO BID 10 Days #20 capsule Ondansetron Odt [Zofran Odt] 4 mg PO Q8HR PRN #15 tab PRN Reason: Nausea And Vomiting Is patient prescribed a controlled substance at d/c from ED?: No Referrals: Indio Olivier MD [Primary Care Provider] - 1-2 days Time of Disposition: 11:48
--- NOTE | 2023-12-09 10:02 | XR ---
EXAMINATION TYPE: XR chest 2V DATE OF EXAM: 12/09/2023 COMPARISON: 11/17/2020 HISTORY: 43-year-old male with cough TECHNIQUE: PA and lateral views FINDINGS: Heart normal size. Aorta and pulmonary vasculature within normal limits. No consolidation or pleural effusion. IMPRESSION: No acute cardiopulmonary process.
--- NOTE | 2023-12-09 10:08 | CT ---
EXAMINATION TYPE: CT abdomen pelvis wo con DATE OF EXAM: 12/09/2023 COMPARISON: None HISTORY: 44-year-old male left flank pain, back pain/vomiting blood/ blood in stool CT DLP: 820.4 mGycm. Automated exposure control for dose reduction was used. TECHNIQUE: Contiguous axial scanning of the abdomen and pelvis without IV contrast. Coronal and sagit petar reconstructions performed. FINDINGS: Heart normal size without pericardial effusion. Lung bases clear without pleural effusion. Liver enlarged at 21.2 cm. Diffuse low attenuation of the hepatic parenchyma. Gallbladder, adrenal glands, right kidney, spleen, and pancreas within normal limits. There is some asymmetric fullness of the left renal collecting system possibly due to underlying para pelvic cysts measuring up to 2.2 cm. No nephrolithiasis or ureteral stone is identified. No dilated small bowel, free fluid, or free air. No mesenteric or retroperitoneal lymphadenopathy. Some prominent fluid-filled small bowel loops in the lower abdomen and liquid stool within the right side of the colon. Mild overall burden elsewhere in the colon. There is mild to moderate circumferent ial wall thickening of thee mid to distal rectum with some minimal perirectal fat stranding demonstra sherice. Bladder urine distended. A couple tiny pelvic phleboliths. No abnormal fluid collection in the pelvis . Borderline enlarged 2.0 cm left inguinal lymph node probably reactive. Scattered mild degenerative change thoracolumbar spine. IMPRESSION: 1. Hepatomegaly at 21.2 cm with moderate to severe hepatic steatosis. Appropriate clinical managemen t is advised. 2. Mild/moderate circumferential wall thickening mid to distal rectum. There may be minimal perirec petar fat stranding as well. Correlate for nonspecific proctitis. 3. Some fluid-filled small bowel loops in the lower abdomen and liquid stool in the right side of th e colon. Findings may be transient represent a concurrent mild enteritis. 4. Asymmetric fullness left renal collecting system suspected to be on the basis of underlying parap elvic cysts measuring up to 2.2 cm. No nephrolithiasis or ureteral stones.
[2023-12-09 11:25] LABS: Appearance,Urine Clear (Clear); Bilirubin,Urine Negative (Negative); Blood,Urine Moderate (Negative); Color,Urine Yellow; Glucose,Urine (UA) 4+ (Negative); Leukocyte Esterase,Urine Negative (Negative); Mucus,Urine Occasional /hpf; Nitrite,Urine Negative (Negative); PH, Urine 5.5 (5.0-8.0); Protein,Urine 1+ (Negative); RBC,Urine 2 /hpf (0-5); Specific Gravity,Urine 1.043 (1.001-1.035); Urobilinogen,Urine <2.0 mg/dL (<2.0); WBC,Urine 1 /hpf (0-5)
[2023-12-09 11:29] LABS: Ketones,Urine 2+ (Negative)
[2023-12-09] MEDS: DOXYCYCLINE 100 MG CAP PO STA (12:05)
[2023-12-09] MEDS: ACET/COD 300 MG/30 MG STARTER PACK 6 TAB BTL PO STA (12:05)
[2023-12-09] MEDS: cefTRIAXone IN SWFI 1,000 MG/10 ML SYRINGE IVP STA (12:05)
[2023-12-09 12:10] VITALS: BP 142/101; PULSE 76; TEMP 97.9
== END 2023-12-09 12:13 | disposition home or self-care (01) ==
LOC: EC 08:21
DX: K62.89 Other specified diseases of anus and rectum (principal); K52.9 Noninfective gastroenteritis and colitis, unspecified; K76.0 Fatty (change of) liver, not elsewhere classified; F12.90 Cannabis use, unspecified, uncomplicated; Z87.891 Personal history of nicotine dependence
CPT/HCPCS: 36415; 93005; 80053; 82150; 83605; 83690; 84484; 85025; 81001; 71046; 74176; 99285; 96374; 96375 ×3; 96361; J2405; J0696; J2270; J1885